=== PATIENT | male | born 1995 | race African-American/Black ===

== ENCOUNTER 2022-10-18 12:34 | Emergency (ER) | payer MEDICAID, OTHER ==
[~2022-10-18] VITALS: Ht 172.7 cm; Wt 86.2 kg
--- NOTE | 2022-10-18 12:40 | NUR ---
ADRIENNE SON From [facility] Escorted by Sheriff Arriola [id number] "cough/URI x3wk now having pain in chest"
--- NOTE | 2022-10-18 12:50 | NUR ---
covid swab taken sent to lab
[2022-10-18] MEDS ORDERED: IBUP-1955 PO (13:42)
[2022-10-18] MEDS ORDERED: BENZ-13 PO (13:42)
[2022-10-18 14:31] VITALS: BP 139/87
--- NOTE | 2022-10-18 14:31 | NUR ---
Patient discharged to home in stable condition. Written and verbal after care instructions given. Patient verbalizes understanding of instruction.
== END 2022-10-18 14:32 ==
LOC: ER 12:36
DX: J06.9 Acute upper respiratory infection, unspecified (principal); B97.89 Other viral agents as the cause of diseases classified elsewhere; Z20.822 Contact with and (suspected) exposure to COVID-19; R07.89 Other chest pain; J45.909 Unspecified asthma, uncomplicated
CPT/HCPCS: 99285; 71045; 87426; 93005; C9803